=== PATIENT | female | born 1930 | race Caucasian/White ===

== ENCOUNTER 2016-11-13 15:57 | Inpatient (IN) | payer OTHER ==
--- NOTE | 2016-11-13 16:57 | PROVIDER DOCUMENTATION ---
HPI-Neurological Disorder <Keaton Alvares - Last Filed: 11/13/16 18:43> - General Source: patient, EMS - History of Present Illness-Neuro Severity: reports: mild (confsuion) Onset/Duration: reports: just prior to arrival Timing: reports: still present Context: reports: other (worsening confusion) Character of Altered Mental Status: reports: confused Any recent trauma/injury?: reports: none Character of Deficits: denies: new weakness, altered sensation, vision problem/ glaucoma, impaired speech, impaired swallowing, decreased ability to stand, decreased ability to walk, falling New weakness or altered sensation location:: reports: none Cognitive Baseline: alert but disoriented Gait Baseline: uses a walker Associated Symptoms: reports: denies symptoms, confusion. denies: decreased ability to walk or stand, fainting, dizziness, chest pain, fatigue, fever/chills , loss of consciousness, muscle spasms Similar Symptoms Previously?: Yes Recently seen or treated by another doctor?: Yes <Kellen Doe - Last Filed: 11/14/16 02:10> - General Stated Complaint: AMS Time Seen by Provider: 11/13/16 16:36 Allergies/Adverse Reactions: Patient Allergies Allergy/AdvReac Type Severity Reaction Status Date / Time No Known Allergies Allergy Verified 11/13/16 17:30 Home Medications: Home Medication List Medication Instructions Recorded Confirmed Last Taken Type Donepezil HCl 10 mg PO QHS 02/19/14 11/13/16 11/12/16 History Fluticasone/Salmeterol [Advair 1 inh IH BID PRN PRN 02/19/14 11/13/16 11/13/16 History 250-50 Diskus] Pantoprazole Sodium 40 mg PO DAILY 02/19/14 11/13/16 11/13/16 History Potassium Chloride [Klor-Con M20] 20 meq PO DAILY 02/19/14 11/13/16 11/13/16 History Zolpidem Tartrate 10 mg PO QHS 02/19/14 11/13/16 11/12/16 History Citalopram Hydrobromide [Celexa] 20 mg PO HS 01/10/15 11/13/16 11/12/16 History Albuterol 2.5MG/Ipratrop 0.5MG 3 ml INH [id number] 10/22/15 11/13/16 11/13/16 History [Duoneb (A & A)] Multivitamin with Minerals/Lut 1 tab PO DAILY 10/22/15 11/13/16 11/13/16 History [Cerovite Senior Tablet] Ondansetron [Zofran] 4 mg PO Q6H PRN PRN 10/22/15 06/08/16 11/13/16 History Sucralfate [Carafate Liquid] 2 tsp PO Q6HR 10/22/15 11/13/16 11/13/16 History Tramadol HCl 50 mg PO BID PRN #30 tablet 10/25/15 11/13/16 11/13/16 Rx Ciprofloxacin [Cipro] 250 mg PO BID 11/13/16 11/13/16 11/13/16 History - History of Present Illness-Neuro Nature of Presenting Problem: 86 year old WF who resides in an assisted living facility sent via EMS for increased confusion. pt reports she was sent here for going to into an area of the facility where she was not authorized. EMS reports they were called to the scene for confusion. the documents that accompanied the patient report she became pale, clammy and confused and that is why they summoned EMS. pt denies any physical complaints, NVD, fever, chills. pt reports she is eating, drinking well and is ambulatory with her walker at a normal activity level. pt is currently being treated for a UTI by Dr[facility] Barrett ([facility] Review of Systems - Adult - REVIEW OF SYSTEMS - ADULT Constitutional: reports: no symptoms reported. denies: chills, fever, fatique Eyes: reports: no symptoms reported. denies: discharge, blurred vision, double vision, redness Ears, Nose, Mouth & Throat: reports: no symptoms reported. denies: ear discharge, ear pain, nose pain, loose teeth, throat pain, throat swelling Cardiovascular: reports: no symptoms reported. denies: chest pain, heart murmur , irregular heart rate, palpitations Respiratory: reports: no symptoms reported. denies: chronic cough, cough, shortness of breath, wheezing Gastrointestinal: reports: no symptoms reported. denies: abdominal pain, diarrhea, nausea, vomiting Genitourinary: reports: no symptoms reported. denies: dysuria, hematuria, urgency Musculoskeletal: reports: no symptoms reported Integumentary: reports: no symptoms reported. denies: hives, itching, rash, skin sores/ulcer Neurological: reports: see HPI, other (confusion). denies: ataxia, dizziness/ vertigo, headache/migraines, loss of balance, numbness, paresthesia, seizure, slurred speech, syncope, tremors Psychiatric: reports: no symptoms reported Endocrine: reports: no symptoms reported Hematologic/Lymphatic: reports: no symptoms reported Allergic/Immunologic: reports: no symptoms reported All Other Systems: Reviewed and Negative <Kellen Doe - Last Filed: 11/14/16 02:10> Past History - Adult - PAST MEDICAL HISTORY-ADULT Review of Records: reports: Old Records Reviewed, Nursing Assessment Review, Medications Reviewed, Social history reviewed & non-contributory. Major Childhood Illnesses: reports: denies history Cardiovascular: reports: HTN Respiratory: reports: asthma, COPD Gastrointestinal: reports: other Obstetrical/Gynecological: reports: denies history Genitourinary: reports: chronic UTI's Musculoskeletal: reports: denies history Neurological: reports: Alzheimer's, dementia Endocrine/Immune: reports: denies history Other Conditions: reports: denies history - PRIOR SURGERIES/PROCEDURES Surgical/Procedure History: reports: appendectomy, hysterectomy - PRIOR HOSPITALIZATIONS Prior Hospitalizations: reports: other - IMMUNIZATION STATUS Childhood Immunizations: See Nurse Assessment Flu Vaccine: See Nurse Assessment - FAMILY HISTORY Family History: reviewed, not pertinent - SOCIAL HISTORY Smoking: denies Substance Use: none/never Alcohol Use Frequency: never <Kellen Doe - Last Filed: 11/14/16 02:10> Physical Exam- Neurological - Physical Exam-Neuro Initial Vital Signs Reviewed: Yes General Appearance: appears well, alert, no apparent distress. negative: mild distress, moderate distress, severe distress, lethargic, slow to respond, obtunded, combative Eye Exam: bilateral eye: normal inspection, PERRL, EOMI HENMT: normocephalic/atraumatic, moist mucous membranes, normal ENT inspection Head Injury: no evidence of injury. negative: active bleeding, Chou's Sign, contusions, ecchymosis, flap, lacerations, raccoon eyes, swelling, tenderness Neck: non-tender, full range of motion, supple, normal inspection Respiratory: chest non-tender, no pleuratic chest pain, no respiratory distress , no accessory muscle use, decreased breath sounds, wheezing. negative: lungs clear, normal breath sounds, respiratory distress, accessory muscle use, crackles, rales, rhonchi, stridor Cardiovascular: normal peripheral pulses, regular rate, rhythm, no edema, no gallop, no murmur Abdominal Exam: normal bowel sounds, non tender, soft, no organomegaly Lymphatic: no adenopathy Peripheral Pulses: radial (R): 3+, radial (L): 3+, dorsalis-pedis (R): 3+, dorsalis-pedis (L): 3+ Extremity: normal range of motion, non-tender, normal gait, normal inspection, no pedal edema, no calf tenderness, normal capillary refill. 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 negative: abnormal eye position , abnormal gag reflex, abnormal pupil position, abnormal speech, facial asymmetry, facial droop, facial paresthesias, facial weakness, gaze palsy, tongue deviation to R, tongue deviation to L Coordination/Gait: normal finger to nose, normal gait, negative Romberg's sign. negative: positive Romberg's sign, abnormal gait, ABN nose to finger (R), ABN nose to finger (L) Motor/Sensory: no motor deficit, no sensory deficit, no pronator drift. negative: pronator drift (R), pronator drift (L), weak motor strength RUE, weak motor strength LUE, weak motor strength RLE, weak motor strength LLE Neurologic: sleeve tailor II-XII nml as tested, grossly normal, no motor/sensory deficits , negative romberg's sign. negative: abnormal cerebellar tests, facial droop, focal weakness, motor weakness, sensory deficit, positive romberg's sign Integumentary: normal color, normal turgor, warm/dry Psych/Mental Status: normal mood/affect, normal thought content, normal thought process, oriented x 3 - Glascow Coma Scale Best Eye Response: (4) open spontaneously Best Verbal Response: (5) oriented Best Motor Response: (6) obeys commands Total Glascow Score: 15 <Kellen Doe - Last Filed: 11/14/16 02:10> Progress - EKG 1 Time of EKG reading by physician:: 18:34 EKG Read and Signed by:: Nitin Estrada EKG Interpretation (*Must complete 3 of following elements*): Abnormal Rate: 89 Rhythm: SINUS RHYTHM W/ PREMATURE SUPRAVENTRICULAR COMPLEXES [place]: normal QRS: normal FL Interval: normal ST Wave: normal <Keaton Alvares - Last Filed: 11/13/16 18:43> - XRAY 1 XRAY Study: Chest Impression: Abnormal (hiatal hernia, no change from previous, per Dr. Estrada) - CT/MRI 1 CT Study: Head Impression: Abnormal (no hemorrhage, microvascular ischemic changes, no changes from prebious per Dr. Waters) - CONSULTS/PCP/HOSPITALIST Notification #1 *Consult/PCP/Hospitalist*: Dr. Ledesma, hospitalist Time Discussed: 19:32 Consult Disposition: Will see in ED, Admit <DoeKellen GiaTrent - Last Filed: 11/14/16 02:10> - PLAN OF CARE/RESULTS Progress/Plan/Lab Results: Laboratory Tests 11/13/16 11/13/16 11/13/16 17:20 17:20 17:20 WBC 12.74 H RBC 4.60 Hgb 13.4 Hct 39.5 MCV 85.9 MCH 29.1 MCHC 33.9 RDW Std Deviation 13.4 Plt Count 239 MPV 11.1 H Immature Gran % (Auto) 0.2 Neut % (Auto) 80.1 H Lymph % (Auto) 11.7 L [place] % (Auto) 6.6 Eos % (Auto) 1.1 Baso % (Auto) 0.3 Immature Gran # (Auto) 0.03 Neut # (Auto) 10.20 H Lymph # (Auto) 1.49 [place] # (Auto) 0.84 H Eos # (Auto) 0.14 Baso # (Auto) 0.04 PT INR PTT (Actin FS) Sodium 124 L Potassium 4.1 Chloride 87 L Carbon Dioxide 24 L Anion Gap 13 BUN 16 Creatinine 0.9 Estimated GFR/1.73 m2 59 BUN/Creatinine Ratio 18 Glucose 89 Calculated Osmolality 250 Calcium 9.3 Total Bilirubin 0.43 AST 27 ALT 17 Alkaline Phosphatase 78 Creatine Kinase 95 Troponin T Total Protein 7.2 Albumin 3.9 Globulin 3.3 Albumin/Globulin Ratio 1.2 Plasma Lactate Urine Source Urine Color Urine Turbidity Urine pH Ur Specific [place] Urine Protein Ur Glucose (Stick) Ur Ketones (Stick) Urine Blood Urine Nitrite Urine Bilirubin Urobilinogen Dipstick Urine Leukocytes Urine WBC (Auto) Urine RBC (Auto) U Epithel Cells (Auto) Urine Bacteria (Auto) Urine Opiates Screen Ur Oxycodone Screen Ur Methadone, Qual Ur Barbiturates Screen Ur Phencyclidine Scrn Ur Amphetamines Screen U Benzodiazepines Scrn Urine Cocaine Screen U Cannabinoids Screen Plasma/Serum Ethyl Alc 11/13/16 11/13/16 11/13/16 17:20 17:20 17:20 WBC RBC Hgb Hct MCV MCH MCHC RDW Std Deviation Plt Count MPV Immature Gran % (Auto) Neut % (Auto) Lymph % (Auto) [place] % (Auto) Eos % (Auto) Baso % (Auto) Immature Gran # (Auto) Neut # (Auto) Lymph # (Auto) [place] # (Auto) Eos # (Auto) Baso # (Auto) PT 10.9 INR 1.03 PTT (Actin FS) 27.7 Sodium Potassium Chloride Carbon Dioxide Anion Gap BUN Creatinine Estimated GFR/1.73 m2 BUN/Creatinine Ratio Glucose Calculated Osmolality Calcium Total Bilirubin AST ALT Alkaline Phosphatase Creatine Kinase Troponin T < 0.010 Total Protein Albumin Globulin Albumin/Globulin Ratio Plasma Lactate 1.5 Urine Source Urine Color Urine Turbidity Urine pH Ur Specific [place] Urine Protein Ur Glucose (Stick) Ur Ketones (Stick) Urine Blood Urine Nitrite Urine Bilirubin Urobilinogen Dipstick Urine Leukocytes Urine WBC (Auto) Urine RBC (Auto) U Epithel Cells (Auto) Urine Bacteria (Auto) Urine Opiates Screen Ur Oxycodone Screen Ur Methadone, Qual Ur Barbiturates Screen Ur Phencyclidine Scrn Ur Amphetamines Screen U Benzodiazepines Scrn Urine Cocaine Screen U Cannabinoids Screen Plasma/Serum Ethyl Alc 11/13/16 11/13/16 18:16 18:16 WBC RBC Hgb Hct MCV MCH MCHC RDW Std Deviation Plt Count MPV Immature Gran % (Auto) Neut % (Auto) Lymph % (Auto) [place] % (Auto) Eos % (Auto) Baso % (Auto) Immature Gran # (Auto) Neut # (Auto) Lymph # (Auto) [place] # (Auto) Eos # (Auto) Baso # (Auto) PT INR PTT (Actin FS) Sodium Potassium Chloride Carbon Dioxide Anion Gap BUN Creatinine Estimated GFR/1.73 m2 BUN/Creatinine Ratio Glucose Calculated Osmolality Calcium Total Bilirubin AST ALT Alkaline Phosphatase Creatine Kinase Troponin T Total Protein Albumin Globulin Albumin/Globulin Ratio Plasma Lactate Urine Source CLEAN CATCH Urine Color YELLOW Urine Turbidity CLEAR Urine pH 7.0 Ur Specific [place] 1.010 Urine Protein TRACE A Ur Glucose (Stick) NEGATIVE Ur Ketones (Stick) 20 A Urine Blood NEGATIVE Urine Nitrite NEGATIVE Urine Bilirubin NEGATIVE Urobilinogen Dipstick NORMAL Urine Leukocytes TRACE A Urine WBC (Auto) <10 Urine RBC (Auto) <10 U Epithel Cells (Auto) <10 Urine Bacteria (Auto) NEGATIVE Urine Opiates Screen NONE DETECTED Ur Oxycodone Screen NONE DETECTED Ur Methadone, Qual NONE DETECTED Ur Barbiturates Screen NONE DETECTED Ur Phencyclidine Scrn NONE DETECTED Ur Amphetamines Screen NONE DETECTED U Benzodiazepines Scrn NONE DETECTED Urine Cocaine Screen NONE DETECTED U Cannabinoids Screen NONE DETECTED Plasma/Serum Ethyl Alc Orders Category Date Time Status Cardiac Monitoring DIRECTED Care 11/13/16 16:49 Active Saline Loc NOW Care 11/13/16 16:49 Active HEAD W/O CONTRAST [CT] Stat Exams 11/13/16 16:51 Draft cxr [CHEST-2 VIEWS] [RAD] Stat Exams 11/13/16 16:50 Taken ALCOHOL BLOOD Stat Lab 11/13/16 17:20 Completed CBC WITH ELECTRONIC DIFF [HEME] Stat Lab 11/13/16 17:20 Completed CK PROFILE [SP CHEM] Stat Lab 11/13/16 17:20 Completed COMPREHENSIVE METABOLIC PANEL [CHEM] Stat Lab 11/13/16 17:20 Completed LACTATE, PLASMA [CHEM] Stat Lab 11/13/16 17:20 Completed PROTIME WITH INR [COAG] Stat Lab 11/13/16 17:20 Completed PTT [COAG] Stat Lab 11/13/16 17:20 Completed TROPONIN T Stat Lab 11/13/16 17:20 Completed UDS [URINE DRUG SCREEN] Stat Lab 11/13/16 18:16 Completed URINALYSIS W/POSS RFLX CULT [URINALYSIS] Stat Lab 11/13/16 18:16 Completed URINE CULTURE [RM] Routine Lab 11/13/16 18:35 Received Albuterol 2.5MG/Ipratrop 0.5MG [Duoneb (A & A)] Med 11/13/16 17:00 Discontinued 3 ml INH NOW ONE Aerosol Treatments Routine Oth 11/13/16 17:00 Completed Aerosol Treatments Stat Oth 11/13/16 17:00 Completed Pulse Oximetry Stat Oth 11/13/16 16:49 Completed EKG [EKG] Stat Ther 11/13/16 16:49 Ordered Vital Signs - 24 hr 11/13/16 11/13/16 17:10 17:16 Temperature 98 F Pulse Rate 80 72 Respiratory 16 20 Rate Blood Pressure 173/89 O2 Sat by Pulse [address] Oximetry Review[address] case with Dr[address] Estrada, agrees with plan of care and admission. (Kellen Doe) Departure <Keaton Alvares - Last Filed: 11/13/16 18:43> - Departure Time of Disposition Order: 18:48 Certified Medical Emergency: Emergent <Kellen Doe - Last Filed: 11/14/16 02:10> - Departure DIAGNOSIS: Hyponatremia, Altered mental status Urinary tract infection Qualifiers: Urinary tract infection type: acute cystitis Hematuria presence: without hematuria Qualified Code(s): N30.00 - Acute cystitis without hematuria Disposition: ADMITTED INPATIENT 09 Condition: Stable Attestation - Physician/ GERALD Attestation Patient care was provided by Advanced Practice Provider:: Yes Advanced Practice Provider:: Kellen Doe Advanced Practice Provider documentation review:: The Mid-level provider documentation, treatment plan and medical decision making was reviewed by the physician who agrees with all treatment and medical decision making by the MLP. <Kellen Doe - Last Filed: 11/14/16 02:10> Physician Attestation
[2016-11-13] MEDS ORDERED: DUONEB (A & A) INH ONE (17:00)
[2016-11-13 17:35] LABS: MANUAL DIFF NEEDED? NO
[2016-11-13 17:42] LABS: BASO% 0.3 % (0.0-0.8); EOS# 0.14 X1000 (0.0-0.7); EOS% 1.1 % (0.0-10.0); HEMATOCRIT 39.5 % (37.0-47.0); HEMOGLOBIN 13.4 g/dL (12.0-16.0); IMM GRAN# 0.03 X1000 (0.0-0.04); IMM GRAN% 0.2 % (0.0-0.5); LYMPH# 1.49 X1000 (1.2-3.4); LYMPH% 11.7 % (20.5-51.1); MCH 29.1 PG (27-31); MCHC 33.9 g/dL (33-37); MCV 85.9 FL (81-99); MONO# 0.84 X1000 (0.11-0.59); MONO% 6.6 % (1.7-9.3); MPV 11.1 FL (7.4-10.4); NEUT% 80.1 % (42.2-75.2); PLT 239 X1000 (130-400)
[2016-11-13 17:50] LABS: INR 1.03; PROTIME 10.9 Seconds (9.2-11.7); PTT 27.7 Seconds (22.0-36.0)
[2016-11-13 18:06] LABS: ALBUMIN 3.9 g/dL (3.5-5.0); CALCIUM 9.3 mg/dL (8.8-10.2); POTASSIUM 4.1 mmol/L (3.5-5.1); TOTAL BILIRUBIN 0.43 mg/dL (0.20-1.00); TOTAL PROTEIN 7.2 g/dL (6.3-8.3)
--- NOTE | 2016-11-13 18:14 | Diag Imaging Result Document ---
PROCEDURE NAME: HEAD W/O CONTRAST - 11/13/2016 CT BRAIN WITHOUT. TECHNIQUE: Dose reduction protocol. COMPARISON: Compared to 06/08/2016. FINDINGS: No parenchymal hemorrhage. No epidural or subdural hematoma. No subarachnoid hemorrhage. No mass identified on this noncontrasted exam. There is atrophy with chronic microvascular ischemic changes. No sinus opacification. No air-fluid levels. IMPRESSION: 1. No hemorrhage. 2. Atrophy with chronic microvascular ischemic changes. An MRI may be beneficial. A preliminary report was given at 5:55 p.m.
[2016-11-13 18:21] LABS: URINE MICRO REVIEW NEEDED? NO; URINE SOURCE CLEAN CATCH
[2016-11-13 18:27] LABS: BILIRUBIN URINE NEGATIVE (NEGATIVE); BLOOD URINE NEGATIVE (NEGATIVE); COLOR YELLOW; GLUCOSE URINE NEGATIVE (NEGATIVE); LEUKOCYTES URINE TRACE (NEGATIVE); NITRITE URINE NEGATIVE (NEGATIVE); PROTEIN URINE TRACE mg/dL (NEGATIVE); TURBIDITY URINE CLEAR (CLEAR); UR EPITHELIAL CELLS <10 /HPF (<10); URINE BACTERIA NEGATIVE /HPF; URINE CULTURE NEEDED? YES; URINE RBC <10 /HPF (<10); URINE WBC <10 /HPF (<10); UROBILINOGEN URINE NORMAL (NORMAL)
[2016-11-13 18:38] LABS: UR AMPHETAMINES QUAL NONE DETECTED (NONE DETECT); UR BARBITUATES QUAL NONE DETECTED (NONE DETECT); UR BENZODIAZEPIN QUAL NONE DETECTED (NONE DETECT); UR CANNABINOIDS QUAL NONE DETECTED (NONE DETECT); UR COCAINE QUAL NONE DETECTED (NONE DETECT); UR METHADONE QUAL NONE DETECTED (NONE DETECT); UR OPIATES QUAL NONE DETECTED (NONE DETECT); UR OXYCODONE QUAL NONE DETECTED (NONE DETECT); UR PCP QUAL NONE DETECTED (NONE DETECT)
[2016-11-13] MEDS ORDERED: NS 1,000 ML IV ONE (19:28)
[2016-11-13] MEDS ORDERED: ROCEPHIN 1 GM/NS 50 ML IV ONE (19:31)
--- NOTE | 2016-11-13 21:45 | HISTORY AND PHYSICAL ---
CHIEF COMPLAINT: Confused. HISTORY OF PRESENTING ILLNESS: An 86-year-old female with a history of dementia, GERD, COPD and chronic UTI apparently was brought from the assisted living facility due to worsening confusion. Patient is fairly confused, not oriented to person, time or place at this time. However, she denied having any kind of symptoms. She denied fever, chills, chest pain, or shortness of breath. However, due to her recent mental status changes she will need hospitalization and further management. PAST MEDICAL HISTORY: Includes dementia, GERD, COPD, chronic UTI. PAST SURGICAL HISTORY: Hysterectomy, tonsillectomy. ALLERGIES: No known drug allergies. CURRENT MEDICATIONS: As listed in MAR. SOCIAL HISTORY: No history of smoking, alcohol or illicit drug use. FAMILY HISTORY: No history of coronary disease. REVIEW OF SYSTEMS: Twelve point review of systems is limited, however, is negative as in HPI. PHYSICAL EXAMINATION: GENERAL: Patient is resting comfortably. VITAL SIGNS: Temperature 98.0 degrees, pulse 80, respirations 16, blood pressure 173/89, she is saturating at 100%. HEENT: Atraumatic, normocephalic. Extraocular movements intact. PERRLA. NECK: No masses. CHEST: Clear to auscultation. CARDIOVASCULAR: Regular rate and rhythm. ABDOMEN: Soft, nontender. Positive bowel sounds. EXTREMITIES: No edema. NEUROLOGIC: She is awake, however, moderately confused. SKIN: Warm. LABORATORIES AND STUDIES: WBCs 12.74, hemoglobin 13.4, hematocrit 39.5, platelets 239,000, sodium 124, potassium 4.1, chloride 87, CO2 24, BUN is 16, creatinine 0.9, glucose is 89. UA shows trace leukocytes. ASSESSMENT: An 86-year-old female with a history of dementia, GERD, COPD who presented to the emergency department with worsening confusion for several days. She was evaluated. She was found to have low sodium and possibly another urinary infection. She will need hospitalization and further management. 1. Altered mental status. 2. Suspected urinary tract infection. 3. Hyponatremia. 4. Dementia. PLAN: 1. We will admit patient to medical floor with telemetry. 2. Continue with neurology checks. 3. We will check urine cultures. Start patient on IV antibiotics. 4. We will continue with IV fluids. Monitor electrolytes. 5. We will restart home medications. 6. Put patient on DVT prophylaxis with SCDs. 7. We will continue to follow and reassess.
[2016-11-14] MEDS ORDERED: ZOFRAN IV PRN (00:20)
[2016-11-14] MEDS ORDERED: ROCEPHIN 1 GM/NS 50 ML IV SCH (00:20)
[2016-11-14] MEDS: NS 1,000 ML IV SCH ×2 (00:52→19:03)
[2016-11-14 06:08] LABS: MANUAL DIFF NEEDED? NO
[2016-11-14 06:15] LABS: BASO% 0.4 % (0.0-0.8); EOS# 0.39 X1000 (0.0-0.7); EOS% 3.5 % (0.0-10.0); HEMATOCRIT 36.7 % (37.0-47.0); HEMOGLOBIN 12.5 g/dL (12.0-16.0); IMM GRAN# 0.03 X1000 (0.0-0.04); IMM GRAN% 0.3 % (0.0-0.5); LYMPH# 1.46 X1000 (1.2-3.4); MCH 29.6 PG (27-31); MCHC 34.1 g/dL (33-37); MCV 86.8 FL (81-99); MONO# 0.75 X1000 (0.11-0.59); MONO% 6.7 % (1.7-9.3); MPV 10.5 FL (7.4-10.4); NEUT% 76.1 % (42.2-75.2); PLT 184 X1000 (130-400); RBC 4.23 XMIL (4.2-5.4)
[2016-11-14 06:34] LABS: AGAP 14; BUN 12 mg/dL (8-22); CALCIUM 8.6 mg/dL (8.8-10.2); CHLORIDE 93 mmol/L (98-107); COSMO 256; POTASSIUM 3.9 mmol/L (3.5-5.1); SODIUM 128 mmol/L (136-145); TCO2 21 mmol/L (25-35)
--- NOTE | 2016-11-14 07:31 | EKG Report ---
Test Performed on : 11/13/2016 6:33:58 PM Test Reason : AMS Blood Pressure : / mmHG Vent. Rate : 089 BPM Atrial Rate : 089 BPM P-R Int : 176 ms QRS Dur : 076 ms QT Int : 402 ms P-R-T Axes : 090 016 045 degrees QTc Int : 489 ms Sinus rhythm. with premature supraventricular complexes. Otherwise normal ECG When compared with ECG of 08-JUN-2016 17:56, premature supraventricular complexes. are now present Unconfirmed Result
[2016-11-14] MEDS: PROTONIX PO SCH ×2 (07:53→09:54)
--- NOTE | 2016-11-14 08:30 | Diag Imaging Result Document ---
PROCEDURE NAME: CHEST-2 VIEWS - 11/13/2016 SEATED AP AND LATERAL RADIOGRAPH OF THE CHEST: COMPARISON: 06/08/2016. FINDINGS: The lungs are grossly clear. There is no definite pleural fluid collection. There is a stable very large hiatal hernia. Cardiac silhouette and central vasculature are grossly unremarkable, otherwise. Stable large hiatal hernia. No definite acute pathology.
[2016-11-14] MEDS ORDERED: ULTRAM PO PRN (15:42)
[2016-11-14] MEDS: ROCEPHIN 1 GM/NS 50 ML IV SCH (19:03)
[2016-11-14] MEDS: DUONEB (A & A) INH SCH (20:01)
[2016-11-14] MEDS: CELEXA PO SCH (20:04)
[2016-11-14] MEDS: AMBIEN PO SCH (20:04)
[2016-11-14] MEDS: ARICEPT PO SCH (20:04)
[2016-11-14] MEDS: CARAFATE LIQUID PO SCH (20:05)
--- NOTE | 2016-11-15 03:07 | PROGRESS NOTE ---
DATE: 11/14/2016 ADDENDUM: Patient still confused. Metabolic encephalopathy felt to be associated with possible UTI, although urine is fairly unimpressive. Chest x-ray is clear. She does have some hyponatremia. We will continue normal saline and follow. That is slowly being corrected. Will go and check thyroid function, liver function, B12, folate levels, and follow clinically. If we do not find anything medically wrong with her, we may have to consider Geriatric Psychiatric evaluation tomorrow if she is still confused. Will continue her regular medications, and follow.
[2016-11-15] MEDS: DUONEB (A & A) INH SCH ×4 (03:42→20:40)
[2016-11-15] MEDS: CARAFATE LIQUID PO SCH ×4 (04:54→20:33)
[2016-11-15] MEDS: NS 1,000 ML IV SCH ×2 (05:50→15:28)
[2016-11-15 06:28] LABS: HEMATOCRIT 35.7 % (37.0-47.0); MCH 29.6 PG (27-31); MCHC 33.6 g/dL (33-37); MCV 87.9 FL (81-99); MPV 10.4 FL (7.4-10.4); RBC 4.06 XMIL (4.2-5.4)
[2016-11-15 06:52] LABS: AGAP 16; ALBUMIN 3.1 g/dL (3.5-5.0); ALKALINE PHOSPHATASE 67 U/L (32-104); BUN 7 mg/dL (8-22); CALCIUM 8.3 mg/dL (8.8-10.2); CHLORIDE 93 mmol/L (98-107); COSMO 261; GOT 22 U/L (10-30); GPT 15 U/L (10-36); POTASSIUM 3.4 mmol/L (3.5-5.1); SODIUM 131 mmol/L (136-145); TCO2 22 mmol/L (25-35); TOTAL BILIRUBIN 0.36 mg/dL (0.20-1.00)
[2016-11-15] MEDS: KLOR-CON PO SCH (08:19)
[2016-11-15] MEDS: PROTONIX PO SCH (08:19)
[2016-11-15] MEDS: CENTRUM SILVER PO SCH (08:19)
[2016-11-15 08:55] LABS: RPR REACTIVE (NONREACTIVE)
[2016-11-15] MEDS: ROCEPHIN 1 GM/NS 50 ML IV SCH (17:41)
[2016-11-15] MEDS: ARICEPT PO SCH (20:33)
[2016-11-15] MEDS: AMBIEN PO SCH (20:33)
[2016-11-15] MEDS: CELEXA PO SCH (20:33)
--- NOTE | 2016-11-15 22:15 | PROGRESS NOTE ---
DATE: 11/15/2016 SUBJECTIVE: Patient has no focal complaints. OBJECTIVE: Vital signs: Blood pressure 140/63, heart rate 72, respiratory rate 16, temperature 94 degrees, 95% on 2 L. Cardiovascular: Regular rate and rhythm. Pulmonary: Bilateral breath sounds. Clear to auscultation. GI: Soft, nontender, nondistended. Bowel sounds are positive. LABORATORY DATA: White count 11, hemoglobin and hematocrit 12 and 35, potassium 3.4, RPR interestingly is positive or slightly positive, I am not sure what to make out of that, may be a false positive. PROBLEM LIST: 1. Altered mentation is still present. She has a questionable urinary tract infection, very questionable. She is complaining of coughing and her chest x-ray is clear. She is empirically on Rocephin which we will continue for now. 2. Dehydration. Continue for now. I think she is fairly stable. 3. Hyponatremia. It appears to be improved. I think tomorrow if her levels are improved, they can consider transferring her to [facility] for [facility] evaluation.
[2016-11-16] MEDS: CARAFATE LIQUID PO SCH ×4 (01:57→22:15)
[2016-11-16] MEDS: DUONEB (A & A) INH SCH ×4 (03:24→21:50)
[2016-11-16 05:19] LABS: HEMATOCRIT 34.3 % (37.0-47.0); HEMOGLOBIN 11.3 g/dL (12.0-16.0); MCH 29.6 PG (27-31); MCHC 32.9 g/dL (33-37); MCV 89.8 FL (81-99); MPV 10.4 FL (7.4-10.4); RBC 3.82 XMIL (4.2-5.4)
[2016-11-16] MEDS: NS 1,000 ML IV SCH ×2 (05:20→17:16)
[2016-11-16 05:56] LABS: AGAP 8; BUN 10 mg/dL (8-22); CALCIUM 8.1 mg/dL (8.8-10.2); CHLORIDE 97 mmol/L (98-107); COSMO 264; POTASSIUM 3.2 mmol/L (3.5-5.1); SODIUM 132 mmol/L (136-145); TCO2 27 mmol/L (25-35)
[2016-11-16] MEDS: PROTONIX PO SCH ×2 (07:54→09:23)
[2016-11-16] MEDS: CENTRUM SILVER PO SCH ×2 (07:54→09:23)
[2016-11-16] MEDS: KLOR-CON PO SCH ×2 (07:54→09:24)
[2016-11-16] MEDS ORDERED: KLOR-CON PO ONE (11:28)
--- NOTE | 2016-11-16 14:32 | PROGRESS NOTE ---
DATE: 11/16/2016 SUBJECTIVE: Patient is lying in bed. Denies any complaint, and she requests she can be sent home today. OBJECTIVE: Vital Signs: Temperature 98.1 degrees, heart rate 70, respiratory rate 15, blood pressure 155/75, O2 saturation 96% on 2 L nasal cannula. General Examination: This is an 86-year- old female lying in bed, in no acute distress. HEENT: Head is normocephalic, atraumatic. Anicteric sclerae and pale conjunctivae. Mucous membranes moist. Neck: Supple. No JVD noted. No carotid bruits. No lymphadenopathy. No thyromegaly. Cardiovascular Exam: S1-S2 heard. No murmurs, gallops, or rubs. Regular rate and rhythm. Respiratory: Clear bilaterally to auscultation. No work of breathing or using accessory muscles. Abdomen: Soft, nontender to palpation. Bowel sounds present. No organomegaly. Extremities: No clubbing, cyanosis, or edema. Peripheral pulses present in both legs. Neurological: Patient is sleepy but answers to verbal stimuli. Moves 4 extremities. LABORATORY DATA: White cell count 10.34, hemoglobin 11.3, hematocrit 34.3, platelets 171,000. BMP shows sodium 132, potassium 3.2, chloride 97, bicarbonate 27, BUN 10, creatinine 0.7, glucose 106. ASSESSMENT: 1. Altered mental status. 2. Questionable urinary tract infection. 3. Dehydration. 4. Hyponatremia. PLAN: The patient was admitted to the hospital for altered mental status. Sodium at that time was a little bit low at 124, now is 132. And apparently there is a an improvement in his mental status. Also, the urinalysis shows really mild infection, if any. Urine culture grows a mix of senthil. Patient is on Rocephin. Also, she was admitted for dehydration which I think she is fairly stable now. As for today, we are going to repeat dose of potassium and we are going to check labs tomorrow. If everything is fine and also if Physical Therapy evaluates this patient today and states that she is safe to go we can discharge this patient tomorrow.
[2016-11-16] MEDS: ROCEPHIN 1 GM/NS 50 ML IV SCH (17:24)
[2016-11-16] MEDS: ARICEPT PO SCH (22:15)
[2016-11-16] MEDS: AMBIEN PO SCH (22:15)
[2016-11-16] MEDS: CELEXA PO SCH (22:15)
[2016-11-17] MEDS: DUONEB (A & A) INH SCH ×4 (03:40→20:41)
[2016-11-17] MEDS: CARAFATE LIQUID PO SCH ×4 (05:01→22:12)
[2016-11-17] MEDS: NS 1,000 ML IV SCH ×4 (05:19→22:26)
[2016-11-17 06:01] LABS: MANUAL DIFF NEEDED? NO
[2016-11-17 06:04] LABS: BASO% 0.3 % (0.0-0.8); EOS# 0.45 X1000 (0.0-0.7); EOS% 4.1 % (0.0-10.0); HEMATOCRIT 32.9 % (37.0-47.0); HEMOGLOBIN 11.2 g/dL (12.0-16.0); IMM GRAN# 0.02 X1000 (0.0-0.04); IMM GRAN% 0.2 % (0.0-0.5); LYMPH# 1.55 X1000 (1.2-3.4); LYMPH% 14.2 % (20.5-51.1); MCH 30.1 PG (27-31); MCV 88.4 FL (81-99); MONO# 0.58 X1000 (0.11-0.59); MONO% 5.3 % (1.7-9.3); MPV 10.6 FL (7.4-10.4); NEUT% 75.9 % (42.2-75.2); PLT 164 X1000 (130-400); RBC 3.72 XMIL (4.2-5.4)
[2016-11-17 06:26] LABS: AGAP 11; BUN 9 mg/dL (8-22); CALCIUM 8.2 mg/dL (8.8-10.2); CHLORIDE 99 mmol/L (98-107); COSMO 268; SODIUM 134 mmol/L (136-145); TCO2 24 mmol/L (25-35)
[2016-11-17] MEDS: KLOR-CON PO SCH (08:38)
[2016-11-17] MEDS: PROTONIX PO SCH (08:38)
[2016-11-17] MEDS: CENTRUM SILVER PO SCH (08:38)
--- NOTE | 2016-11-17 14:42 | PROGRESS NOTE ---
DATE: 11/17/2016 SUBJECTIVE: Patient is more alert and awake. Asked when she can be discharged, she denies any complaint upon my examination. OBJECTIVE: Vital Signs: Temperature 98.2 degrees, heart rate 83, respiratory 16, blood pressure 150/59, O2 saturation 94% on room air. General Examination: This is a 86-year-old female lying in bed in no acute distress. HEENT: Head is normocephalic, atraumatic. Anicteric sclerae and pale conjunctivae. Mucous membranes moist. Neck: Supple. No JVD noted. No carotid bruits. No lymphadenopathy. No thyromegaly. Cardiovascular: S1, S2 heard. No murmurs, gallops, or rubs. Regular rate and rhythm. Respiratory: Clear bilaterally to auscultation. No work of breathing or using accessory muscles. Abdomen: Soft, nontender to palpation. Bowel sounds present. No organomegaly. Extremities: No clubbing, cyanosis or edema. Peripheral pulses present in both legs. Neurological: Patient is alert and oriented x3, able to move 4 extremities. Cranial nerves 2-12 grossly normal. LABORATORY DATA: White cell count 10.93, hemoglobin 11.2, hematocrit 32.9, platelets 164,000. Sodium 134, potassium 4.0, BMP is unremarkable. ASSESSMENT AND PLAN: 1. Altered mental status. 2. Urinary tract infection. 3. Dehydration. 4. Hyponatremia. PLAN: Patient was admitted to the hospital for altered mental status and questionable urinary tract infection. Patient is on ceftriaxone and definite today the altered mental status completely resolved. Patient is back to normal. At this time patient is stable. I think considering that this patient had a good response to IV fluids I think we will stop those IV fluids. While she is in the hospital will continue with antibiotics for this urinary tract infection although urine culture shows mixed senthil. Patient lives in assisted living facility so we can send her back next Saturday.
[2016-11-17] MEDS: ROCEPHIN 1 GM/NS 50 ML IV SCH (17:07)
[2016-11-17] MEDS: CELEXA PO SCH (22:12)
[2016-11-17] MEDS: AMBIEN PO SCH (22:12)
[2016-11-17] MEDS: ARICEPT PO SCH (22:12)
[2016-11-18] MEDS: CARAFATE LIQUID PO SCH ×4 (03:57→21:04)
[2016-11-18] MEDS: DUONEB (A & A) INH SCH ×4 (04:55→19:25)
[2016-11-18 05:35] LABS: MANUAL DIFF NEEDED? NO
[2016-11-18 05:42] LABS: BASO% 0.5 % (0.0-0.8); EOS# 0.53 X1000 (0.0-0.7); EOS% 6.2 % (0.0-10.0); HEMATOCRIT 36.6 % (37.0-47.0); HEMOGLOBIN 12.1 g/dL (12.0-16.0); IMM GRAN# 0.02 X1000 (0.0-0.04); IMM GRAN% 0.2 % (0.0-0.5); LYMPH# 1.22 X1000 (1.2-3.4); LYMPH% 14.2 % (20.5-51.1); MCH 29.4 PG (27-31); MCHC 33.1 g/dL (33-37); MCV 89.1 FL (81-99); MONO# 0.56 X1000 (0.11-0.59); MONO% 6.5 % (1.7-9.3); MPV 10.7 FL (7.4-10.4); NEUT% 72.4 % (42.2-75.2); PLT 163 X1000 (130-400); RBC 4.11 XMIL (4.2-5.4)
[2016-11-18 05:55] LABS: AGAP 11; BUN 8 mg/dL (8-22); CALCIUM 8.6 mg/dL (8.8-10.2); CHLORIDE 97 mmol/L (98-107); COSMO 269; SODIUM 135 mmol/L (136-145); TCO2 27 mmol/L (25-35)
[2016-11-18] MEDS: NS 1,000 ML IV SCH ×4 (08:02→21:04)
[2016-11-18] MEDS: PROTONIX PO SCH (10:00)
[2016-11-18] MEDS: CENTRUM SILVER PO SCH (10:00)
[2016-11-18] MEDS: KLOR-CON PO SCH (10:00)
--- NOTE | 2016-11-18 15:17 | PROGRESS NOTE ---
DATE: 11/18/2016 SUBJECTIVE: Patient is more alert and awake, asking when she is going to be discharged. Denies fever or chills. OBJECTIVE: Vital Signs: Temperature 97.8, heart rate 75, respiratory rate 14, blood pressure 154/79, O2 saturation 99% 2 L nasal cannula. General: This is a 86-year-old female lying in bed, in no acute distress. HEENT: Head is normocephalic, atraumatic. Anicteric sclerae and pale conjunctivae. Mucous membranes moist. Neck: Supple. No JVD noted. No carotid bruits. No lymphadenopathy. No thyromegaly. Cardiovascular: S1, S2 heard. No murmurs, gallops, or rubs. Regular rate and rhythm. Respiratory: Clear bilaterally to auscultation. No work of breathing or using accessory muscles. Abdomen: Soft, nontender to palpation. Bowel sounds present. No organomegaly. Extremities: No clubbing, cyanosis, or edema. Peripheral pulses present in both legs. Neurological: Patient alert and oriented x3. Able to move 4 extremities. Cranial nerves 2-12 grossly normal. LABORATORY DATA: CBC and BMP is completely unremarkable. ASSESSMENT AND PLAN: 1. Altered mental status. 2. Urinary tract infection. 3. Dehydration. 4. Hyponatremia. PLAN: 1. The patient has been admitted to the hospital for altered mental status. This has resolved. 2. Urinary tract infection, the urine culture showed mix senthil. She has been receiving ceftriaxone. We are going to stopped antibiotics at discharge. 3. For dehydration and hyponatremia, the sodium is back to normal. At this time, we are waiting for Saturday to send this patient back to her assisted living facility.
[2016-11-18] MEDS: ROCEPHIN 1 GM/NS 50 ML IV SCH (21:03)
[2016-11-18] MEDS: CELEXA PO SCH (21:04)
[2016-11-18] MEDS: AMBIEN PO SCH (21:04)
[2016-11-18] MEDS: ARICEPT PO SCH (21:04)
[2016-11-19] MEDS: CARAFATE LIQUID PO SCH ×2 (03:25→10:07)
[2016-11-19] MEDS: DUONEB (A & A) INH SCH ×2 (03:40→08:21)
[2016-11-19 04:34] VITALS: BP 177/73
[2016-11-19 06:04] LABS: MANUAL DIFF NEEDED? NO
[2016-11-19 06:07] LABS: BASO% 0.5 % (0.0-0.8); EOS# 0.43 X1000 (0.0-0.7); EOS% 5.8 % (0.0-10.0); HEMATOCRIT 34.3 % (37.0-47.0); HEMOGLOBIN 11.4 g/dL (12.0-16.0); LYMPH# 1.37 X1000 (1.2-3.4); LYMPH% 18.4 % (20.5-51.1); MCH 29.6 PG (27-31); MCHC 33.2 g/dL (33-37); MCV 89.1 FL (81-99); MONO# 0.54 X1000 (0.11-0.59); MONO% 7.2 % (1.7-9.3); MPV 10.7 FL (7.4-10.4); NEUT% 68.1 % (42.2-75.2); PLT 151 X1000 (130-400); RBC 3.85 XMIL (4.2-5.4)
[2016-11-19 06:22] LABS: AGAP 13; BUN 10 mg/dL (8-22); CALCIUM 8.1 mg/dL (8.8-10.2); CHLORIDE 97 mmol/L (98-107); COSMO 273; POTASSIUM 3.9 mmol/L (3.5-5.1); SODIUM 137 mmol/L (136-145); TCO2 27 mmol/L (25-35)
[2016-11-19] MEDS: NS 1,000 ML IV SCH (07:55)
[2016-11-19] MEDS: KLOR-CON PO SCH (10:07)
[2016-11-19] MEDS: CENTRUM SILVER PO SCH (10:08)
[2016-11-19] MEDS: PROTONIX PO SCH (10:08)
--- NOTE | 2016-11-20 14:39 | DISCHARGE SUMMARY ---
ADMISSION DATE: 11/13/2016 DISCHARGE DATE: 11/19/2016 CONSULTATIONS: None. PROCEDURES: Head CT showed no hemorrhage. There is atrophy with chronic microvascular ischemic changes. DISCHARGE DIAGNOSES: 1. Metabolic encephalopathy secondary to urinary tract infection, resolved. 2. Urinary tract infection. Patient will continue with Omnicef oral. 3. Dehydration, resolved. 4. Hyponatremia, resolved. HOSPITAL COURSE: Ms. Hernandez is an 86-year-old female with a history of dementia, GERD, COPD, and chronic UTI. The patient was brought from [facility] due to worsening confusion. Patient on the time of admission was fairly confused. She was not oriented to person, time or place. She was admitted for suspected UTI, as well as hyponatremia. She was started on IV antibiotics. She was also started on IV fluids for her hyponatremia; that was slowly corrected. Dr. Lynn had question of possible Yue psych evaluation. The patient did become more alert, more awake. She knows her name, her date of , where she is at. She did note that she came from assisted living, but she could not tell me the name. I asked her if it was [facility] and she said yes. She states she is ready to go back. She is working with physical therapy. She has tolerated that well. She was weaned off her O2. VITAL SIGNS AT TIME OF DISCHARGE: Temperature is 98.0 degrees, heart rate 73, blood pressure is 177/73, O2 is 95% on room air. DISCHARGE MEDICATIONS: 1. Advair inhaler 1 puff inhaled b.i.d. p.r.n. 2. Donepezil 10 mg p.o. at bedtime. 3. Protonix 40 mg p.o. daily. 4. Klor-Con 20 mEq p.o. daily. 5. Ambien 10 mg p.o. at bedtime. 6. Citalopram hydrobromide 20 mg p.o. at bedtime. 7. Zofran 4 mg p.o. q. 6 hours p.r.n. nausea. 8. Carafate liquid 2 tablespoons p.o. q. 6 hours. 9. Albuterol inhaler 3 mL inhaled RT 4 times a day. 10. Multivitamin 1 tab p.o. daily. 11. Tramadol 50 mg p.o. b.i.d. 12. Omnicef 300 mg p.o. b.i.d. FOLLOWUP: The patient is being discharged back to her assisted living at [facility]. She can follow up with her primary care physician, Dr. Jaison Barrett, in 7-10 days. Patient can return to the ED for any worsening of symptoms. DISCHARGE TIME: 35 minutes. Dictated by JUANCARLOS Woods for Tank Vigil MD MTDD
--- NOTE | 2016-11-28 08:35 | DISCHARGE SUMMARY ---
ADMISSION DATE: 11/13/2016 DISCHARGE DATE: 11/19/2016 DISCHARGE SUMMARY ADDENDUM: DATE: 11/28/2016 ANSWER: UTI with sepsis.
== END 2016-11-19 15:15 | DRG 871 ==
LOC: EDBD → ED 15:57 → EDIPHOLD 23:36 → 4N 23:49
PROVIDERS: ATTEND Internal Medicine
DX: A41.9 Sepsis, unspecified organism (principal); G93.41 Metabolic encephalopathy; E87.1 Hypo-osmolality and hyponatremia; N39.0 Urinary tract infection, site not specified; J44.9 Chronic obstructive pulmonary disease, unspecified; F03.90 Unspecified dementia, unspecified severity, without behavioral disturbance, psychotic disturbance, mood disturbance, and anxiety; E86.0 Dehydration; K21.9 Gastro-esophageal reflux disease without esophagitis; Z79.899 Other long term (current) drug therapy
CPT/HCPCS: 70450; 71020; 80048; 80053; 81001; 82140; 82550; 82607; 82746; 83605; 84443; 84484; 85025; 85027; 85610; 85651; 85730; 86592; 86593; 87088; 93005; 94640; 94761; 96365; 96366; G0480; J0696; J7030; 80320; 80324; 80345; 80346; 80349; 80353; 80358; 80361; 80365; 83992; 97116-GP; 97530-GP